=== PATIENT | male | born 1975 | race Caucasian/White ===

== ENCOUNTER 2025-03-31 12:18 | Emergency (ER) | payer OTHER ==
[~2025-03-31 12:18] MED LIST: Iopamidol-370 76% 500 ML MDV (1 ML CHARGE) ONE
[2025-03-31] MEDS ORDERED: Ondansetron PF 4 MG/2 ML Vial ONE ×2 (12:36→16:33)
[2025-03-31 12:53] LABS: #Basophils 0.06 10x3/uL (0.0-0.2); #Eosinophils 0.40 10x3/uL (0.0-0.7); #Monocytes 0.55 10x3/uL (0.11-0.59); #Neutrophils 10.13 10x3/uL (1.40-6.50); %Basophils 0.4 % (0.0-1.0); %Eosinophils 2.8 % (0.0-10.0); %Lymphocytes 22.0 % (21.0-51.0); %Monocytes 3.8 % (0.0-10.0); %Neutrophils 70.7 % (42.0-75.0); Hematocrit 47.6 % (42.0-52.0); Hemoglobin 15.9 g/dL (14.0-18.0); Mean Corpuscular Hemoglobin 27.7 pg (27.0-31.0); Mean Corpuscular Volume 82.9 fL (78.0-98.0); Platelet Count 184 10x3/uL (130-400); Red Blood Cell (RBC) Count 5.74 mill/uL (4.70-6.10); White Blood Cell (WBC) Count 14.34 10x3/uL (4.8-10.8)
[2025-03-31 13:19] LABS: ALT (SGPT) 24 U/L (Less than 45); AST (SGOT) 32 U/L (11-34); Albumin 4.5 g/dL (3.1-4.5); Alkaline Phosphatase 145 U/L (40-110); Anion Gap 15 mmol/L (10-20); BUN (Urea Nitrogen) 10 mg/dL (8.9-20.6); Bilirubin, Total 1.0 mg/dL (0.3-1.2); Calc. Creatinine Clearance 0 mL/min (70-130); Calcium 9.8 mg/dL (7.8-10.44); Carbon Dioxide 23 mmol/L (22-29); Cardiac Risk 3.3 (Less than 4.5); Chloride 105 mmol/L (98-107); Cholesterol 143 mg/dl (< 200 Desired); Globulin 4.1 g/dL (2.4-3.5); Glucose 118 mg/dL (70-105); HDL Cholesterol 44 mg/dL (>60 Neg Risk); LDL Cholesterol, Calculated 74 mg/dL; Potassium 4.0 mmol/L (3.5-5.1); Sodium 139 mmol/L (136-145); Triglycerides 124 mg/dL (Less than 150)
[2025-03-31 13:20] LABS: Lipase 801 U/L (8-78)
[2025-03-31] MEDS ORDERED: Metoclopramide HCl 10 MG (2 mL) VIAL ONE (14:07)
== END 2025-03-31 17:07 | disposition short-term general hospital (02) ==
LOC: EEVIPCON 12:18 → ERS 12:18
DX: K85.90 Acute pancreatitis without necrosis or infection, unspecified (principal)
CPT/HCPCS: 71045; 74177; 80053; 80061; 83690; 84484; 85025; 93005; 96361; 96365; 96375; 96376; J2270; J2765; Q9967